=== PATIENT | female | born 1965 | race Caucasian/White ===

== ENCOUNTER 2018-02-05 07:27 | Outpatient (CLI) | payer OTHER ==
[~2018-02-05 07:27] MED LIST: CHOL10002 PO; LACT1CAP73 PO; MAGN400C PO; OMEG300C3 PO; [UNRECOGNIZED DRUG - OTHER] PO
[2018-02-05 08:15] LABS: BASOPHILS % (AUTO) 0.9 % (0-1); EOSINOPHILS # (AUTO) 0.1 X10'3 (0-0.9); EOSINOPHILS % (AUTO) 2.4 % (0-6); HEMATOCRIT 38.9 % (35.0-45.0); HEMOGLOBIN 13.4 g/dl (12.0-16.0); LYMPHOCYTES # (AUTO) 1.8 X10'3 (1.1-4.8); LYMPHOCYTES % (AUTO) 32.3 % (21-51); MEAN CORPUSCULAR HEMOGLOBIN 30.8 PG (27.0-31.0); MEAN CORPUSCULAR HGB CONC 34.4 % (33.0-36.5); MEAN CORPUSCULAR VOLUME 89.4 FL (78-98); MONOCYTES # (AUTO) 0.6 X10'3 (0-0.9); MONOCYTES % (AUTO) 10.7 % (2-12); NEUTROPHILS % (AUTO) 53.7 % (42-75); PLATELET COUNT 229 X10'3 (140-440); RED BLOOD COUNT 4.35 X10'6 (4.20-5.60); RED CELL DISTRIBUTION WIDTH 13.3 % (11.5-14.5); WHITE BLOOD COUNT 5.6 X10'3 (4.5-11.0)
[2018-02-05 08:43] LABS: ALANINE AMINOTRANSFERASE 20 U/L (12-78); ALBUMIN 3.8 G/DL (3.4-5.0); ALKALINE PHOSPHATASE 74 IU/L (46-116); ANION GAP 6 (8-16); ASPARTATE AMINO TRANSFERASE 13 U/L (10-37); BILIRUBIN,TOTAL 0.6 MG/DL (0.1-1.0); BLOOD UREA NITROGEN 13 MG/DL (7-18); C-REACTIVE PROTEIN 0.27 MG/DL (0.0-0.5); CHLORIDE 103 MMOL/L (99-107); CHOL/HDL RATIO 2.2 (0.00-4.99); CHOLESTEROL 192 MG/DL (0-200); CREATININE 1.08 MG/DL (0.40-0.90); GLUCOSE 101 MG/DL (70-104); HDL CHOLESTEROL 88 MG/DL (35-60); LDL CHOLESTEROL 96 MG/DL (50-100); PHOSPHORUS 3.7 MG/DL (2.3-4.5); POTASSIUM 4.4 MMOL/L (3.5-5.1); SODIUM 140 MMOL/L (135-145); TOTAL CARBON DIOXIDE 30.6 MMOL/L (24-32); TOTAL PROTEIN 7.8 G/DL (6.4-8.2); TRIGLYCERIDES 26 MG/DL (20-135); eGFR 54 ML/MIN
[2018-02-06 08:16] LABS: HBSAG SCREEN Negative (Negative); HEP A AB, IGM Negative (Negative); HEP B CORE AB, IGM Negative (Negative); HEPATITIS C ANTIBODY 2.1 s/co ratio (0.0-0.9); THIIODOTHRONINE, FREE, SERUM 2.5 pg/mL (2.0-4.4); THYROID PEROXIDASE AB 11 IU/mL (0-34)
[2018-02-06 13:36] LABS: EBV AB VCA, IGM <36.0 U/mL (0.0-35.9); EBV NUCLEAR ANTIGEN AB, IGG <18.0 U/mL (0.0-17.9)
[2018-02-07 05:20] LABS: ANTITHYROGLOBULIN AB <1.0 IU/mL (0.0-0.9); VITAMIN D, 25-HYDROXY 43.3 ng/mL (30.0-100.0)
== END 2018-02-05 23:59 | disposition home or self-care (01) ==
LOC: LAB 07:27
PROVIDERS: ATTEND Family Medicine
DX: Z00.01 Encounter for general adult medical examination with abnormal findings (principal); E04.9 Nontoxic goiter, unspecified; E03.9 Hypothyroidism, unspecified; Z87.891 Personal history of nicotine dependence
CPT/HCPCS: 36415; 76536; 80053; 80061; 80074; 82306; 82607; 82652; 82746; 84100; 84439; 84443; 84481; 84550; 85025; 85651; 86140; 86376; 86663; 86664; 86665

== ENCOUNTER 2018-08-28 13:11 | Emergency (ER) | payer OTHER ==
[~2018-08-28] VITALS: Ht 172.7 cm; Wt 85.0 kg
[2018-08-28 13:55] LABS: BASOPHILS % (AUTO) 0.7 % (0-1); EOSINOPHILS # (AUTO) 0.2 X10'3 (0-0.9); EOSINOPHILS % (AUTO) 2.7 % (0-6); HEMOGLOBIN 13.7 g/dl (12.0-16.0); LYMPHOCYTES # (AUTO) 1.7 X10'3 (1.1-4.8); MEAN CORPUSCULAR HGB CONC 33.4 % (33.0-36.5); MONOCYTES # (AUTO) 0.6 X10'3 (0-0.9); NEUTROPHILS # (AUTO) 3.7 X10'3 (1.8-7.7); NEUTROPHILS % (AUTO) 60.6 % (42-75); PLATELET COUNT 258 X10'3 (140-440); RED BLOOD COUNT 4.55 X10'6 (4.20-5.60); RED CELL DISTRIBUTION WIDTH 13.4 % (11.5-14.5); WHITE BLOOD COUNT 6.1 X10'3 (4.5-11.0)
[2018-08-28 14:24] VITALS: BP 130/82
--- NOTE | 2018-08-28 14:24 | NUR ---
PT RESTING QUIETLY ON GURNEY, WAITING FOR CT
--- NOTE | 2018-08-28 14:26 | NUR ---
pt to CT
--- NOTE | 2018-08-28 14:52 | NUR ---
Dr Brito at bedside to eval pt
[2018-08-28 15:05] LABS: ALANINE AMINOTRANSFERASE 20 U/L (12-78); ALBUMIN 3.8 G/DL (3.4-5.0); ALKALINE PHOSPHATASE 80 IU/L (46-116); ANION GAP 10 (8-16); ASPARTATE AMINO TRANSFERASE 12 U/L (10-37); BILIRUBIN,TOTAL 0.5 MG/DL (0.1-1.0); BLOOD UREA NITROGEN 15 MG/DL (7-18); BUN/CREATININE RATIO 18.8 (6.6-38.0); CHLORIDE 101 MMOL/L (99-107); GLUCOSE 106 MG/DL (70-104); POTASSIUM 4.4 MMOL/L (3.5-5.1); SODIUM 137 MMOL/L (135-145); TOTAL PROTEIN 7.7 G/DL (6.4-8.2); eGFR 76 ML/MIN
== END 2018-08-28 15:25 | disposition home or self-care (01) ==
LOC: ER 13:12
DX: R51 Headache (principal); H53.8 Other visual disturbances; Z88.8 Allergy status to other drugs, medicaments and biological substances
CPT/HCPCS: 36415; 70450; 80053; 85025; 99284

== ENCOUNTER 2019-12-31 11:12 | Emergency (ER) | payer OTHER ==
[~2019-12-31] VITALS: Ht 177.8 cm; Wt 90.0 kg
[2019-12-31] MEDS ORDERED: iohexol 300mg/ml 100ml inj. ONE (11:24)
--- NOTE | 2019-12-31 11:39 | NUR ---
pt out to ct via wheelchair with motion picture camera operator
[2019-12-31 11:59] LABS: BASOPHILS % (AUTO) 0.8 % (0-1); EOSINOPHILS # (AUTO) 0.1 X10'3 (0-0.9); EOSINOPHILS % (AUTO) 1.7 % (0-6); HEMATOCRIT 40.4 % (35.0-45.0); HEMOGLOBIN 13.4 g/dl (12.0-16.0); LYMPHOCYTES # (AUTO) 1.4 X10'3 (1.1-4.8); LYMPHOCYTES % (AUTO) 28.6 % (21-51); MEAN CORPUSCULAR HEMOGLOBIN 30.9 PG (27.0-31.0); MEAN CORPUSCULAR HGB CONC 33.2 g/dL (33.0-36.5); MEAN CORPUSCULAR VOLUME 93.2 FL (78-98); MEAN PLATELET VOLUME 8.1 FL (7.4-10.4); MONOCYTES # (AUTO) 0.5 X10'3 (0-0.9); MONOCYTES % (AUTO) 10.6 % (2-12); NEUTROPHILS # (AUTO) 2.9 X10'3 (1.8-7.7); NEUTROPHILS % (AUTO) 58.3 % (42-75); PLATELET COUNT 252 X10'3 (140-440); RED BLOOD COUNT 4.33 X10'6 (4.20-5.60); RED CELL DISTRIBUTION WIDTH 13.5 % (11.5-14.5); WHITE BLOOD COUNT 4.9 X10'3 (4.5-11.0)
--- NOTE | 2019-12-31 12:00 | NUR ---
pt returns from ct
[2019-12-31 12:10] LABS: PARTIAL THROMBOPLASTIN TIME 28 SECONDS (22-32)
[2019-12-31 12:13] LABS: ALANINE AMINOTRANSFERASE 22 U/L (12-78); ALBUMIN 4.1 G/DL (3.4-5.0); ALBUMIN/GLOBULIN RATIO 1.1 (1.1-1.5); ALKALINE PHOSPHATASE 86 IU/L (46-116); ANION GAP 8 (8-16); ASPARTATE AMINO TRANSFERASE 23 U/L (10-37); BILIRUBIN,TOTAL 0.8 MG/DL (0.1-1.0); BLOOD UREA NITROGEN 7 MG/DL (7-18); BUN/CREATININE RATIO 8.6 (6.6-38.0); CALCIUM 9.1 MG/DL (8.5-10.1); CHLORIDE 103 MMOL/L (99-107); CREATININE 0.81 MG/DL (0.40-0.90); GLUCOSE 94 MG/DL (70-104); LIPASE 229 U/L (73-393); POTASSIUM 3.9 MMOL/L (3.5-5.1); SODIUM 137 MMOL/L (135-145); TOTAL CARBON DIOXIDE 26.1 MMOL/L (24-32); TOTAL PROTEIN 7.8 G/DL (6.4-8.2); eGFR 74 ML/MIN
--- NOTE | 2019-12-31 12:31 | NUR ---
aware patient unable to void at this time.
[2019-12-31 13:20] LABS: CLARITY,URINE CLEAR (Clear); COLOR,URINE STRAW (Yellow); GLUCOSE, URINE NEGATIVE (Neg); KETONES,URINE NEGATIVE (Neg); LEUKOCYTE ESTERASE ,URINE NEGATIVE (Neg); NITRITES, URINE NEGATIVE (Neg); OCCULT BLOOD,URINE NEGATIVE (Neg); PROTEIN,URINE NEGATIVE (Neg); UA COLLECTION TYPE CLN CATCH MIDSTREAM; UROBILINOGEN,URINE 0.2 E.U/dL (0.2-1.0)
[2019-12-31 14:10] VITALS: BP 118/72
== END 2019-12-31 14:12 | disposition home or self-care (01) ==
LOC: ER 11:12 → EEVIPCON 11:12 → ER 14:12
DX: S30.1XXA Contusion of abdominal wall, initial encounter (principal); S20.212A Contusion of left front wall of thorax, initial encounter; Z98.890 Other specified postprocedural states; Z88.8 Allergy status to other drugs, medicaments and biological substances; Z79.899 Other long term (current) drug therapy; V29.9XXA Motorcycle rider (driver) (passenger) injured in unspecified traffic accident, initial encounter; Y93.89 Activity, other specified; Y92.89 Other specified places as the place of occurrence of the external cause; Y99.8 Other external cause status
CPT/HCPCS: 36415; 71260; 74177; 80053; 81003; 83690; 85025; 85610; 85730; 99285; Q9967

== ENCOUNTER 2020-07-19 09:35 | Day surgery (SDC) | payer BC ==
[~2020-07-19] VITALS: Ht 177.8 cm; Wt 95.5 kg
[2020-07-19 09:46] VITALS: BP 133/70
[2020-07-19] MEDS ORDERED: fentaNYL/PF 50MCG/1 ML 2ML syringe ONE (10:00)
[2020-07-19] MEDS ORDERED: LIDOcaine Viscous 15ml cup ONE (10:00)
[2020-07-19] MEDS ORDERED: MIDAZolam 5mg/5ml vial ONE (10:00)
[2020-07-19 10:29] VITALS: BP 137/76
[2020-07-19 10:39] VITALS: BP 134/77
[2020-07-19 10:49] VITALS: BP 122/64
[2020-07-19 10:59] VITALS: BP 130/75
== END 2020-07-19 11:07 | disposition home or self-care (01) ==
LOC: GI LAB 09:35
PROVIDERS: ATTEND Internal Medicine Gastroenterology
DX: R13.10 Dysphagia, unspecified (principal); K21.00 Gastro-esophageal reflux disease with esophagitis, without bleeding; K29.70 Gastritis, unspecified, without bleeding; K44.9 Diaphragmatic hernia without obstruction or gangrene; Z88.8 Allergy status to other drugs, medicaments and biological substances; Z79.899 Other long term (current) drug therapy
CPT/HCPCS: 43239; 99152; J2250; J3010; J7040; A4620

== ENCOUNTER 2021-03-17 12:01 | Emergency (ER) | payer BC, OTHER ==
[~2021-03-17] VITALS: Ht 177.8 cm; Wt 90.9 kg
[~2021-03-17 12:01] MED LIST changes: -CHOL10002 PO; -LACT1CAP73 PO; -OMEG300C3 PO
[2021-03-17 12:07] VITALS: BP 135/62
[2021-03-17] MEDS ORDERED: CEPH250T PO (12:23)
[2021-03-17 12:42] LABS: CLARITY,URINE SLIGHTLY CLOUDY (Clear); COLOR,URINE YELLOW (Yellow); GLUCOSE, URINE NEGATIVE (Neg); KETONES,URINE NEGATIVE (Neg); LEUKOCYTE ESTERASE ,URINE SMALL (Neg); NITRITES, URINE NEGATIVE (Neg); OCCULT BLOOD,URINE SMALL (Neg); PROTEIN,URINE NEGATIVE (Neg); UROBILINOGEN,URINE 0.2 E.U/dL (0.2-1.0)
[2021-03-17 12:46] LABS: UA COLLECTION TYPE CLN CATCH MIDSTREAM
[2021-03-17 12:47] LABS: WBC,URINE 30-50 /HPF (0-4)
[2021-03-17 12:48] LABS: BACTERIA,URINE 3+ /HPF (Neg); MUCUS STRANDS FEW /LPF (Neg); RBC,URINE 0-2 /HPF (0-2); SQUAMOUS EPITHELIAL CELL,UR NONE SEEN /LPF (FEW)
== END 2021-03-17 12:57 | disposition home or self-care (01) ==
LOC: ER 12:02
DX: N39.0 Urinary tract infection, site not specified (principal); Z88.8 Allergy status to other drugs, medicaments and biological substances
CPT/HCPCS: 81001; 87077; 87088; 87186; 99283

== ENCOUNTER 2021-10-01 07:40 | Day surgery (SDC) | payer BC ==
[~2021-10-01] VITALS: Ht 154.9 cm; Wt 90.9 kg
[2021-10-01] MEDS ORDERED: MIDAZolam 1 MG/ML 5ML VIAL ONE (08:01)
[2021-10-01] MEDS ORDERED: fentaNYL/PF 50MCG/1 ML 2ML syringe ONE (08:01)
[2021-10-01] MEDS ORDERED: MAGN200T8 PO (08:08)
[2021-10-01 08:59] VITALS: BP 126/82
[2021-10-01 10:57] VITALS: BP 132/72
[2021-10-01 11:07] VITALS: BP 131/70
[2021-10-01 11:17] VITALS: BP 121/70
[2021-10-01 11:27] VITALS: BP 125/62
== END 2021-10-01 11:30 | disposition home or self-care (01) ==
LOC: GI LAB 07:40
PROVIDERS: ATTEND Internal Medicine Gastroenterology
DX: Z12.11 Encounter for screening for malignant neoplasm of colon (principal); K57.30 Diverticulosis of large intestine without perforation or abscess without bleeding; K64.8 Other hemorrhoids; Z86.010 Personal history of colon polyps
CPT/HCPCS: 45378; 99152; 99153; J2250; J3010; J7040; Z7512; A4620

== ENCOUNTER 2022-07-11 09:42 | Emergency (ER) | payer BC ==
[~2022-07-11] VITALS: Ht 177.8 cm; Wt 90.9 kg
[~2022-07-11 09:42] MED LIST changes: +MAGN200T8 PO; -MAGN400C PO; -[UNRECOGNIZED DRUG - OTHER] PO
[2022-07-11 09:59] LABS: BASOPHILS # (AUTO) 0.1 X10'3 (0-0.2); BASOPHILS % (AUTO) 0.9 % (0-1); EOSINOPHILS # (AUTO) 0.1 X10'3 (0-0.9); EOSINOPHILS % (AUTO) 1.3 % (0-6); HEMATOCRIT 39.1 % (35.0-45.0); LYMPHOCYTES % (AUTO) 35.7 % (21-51); MEAN CORPUSCULAR HEMOGLOBIN 29.6 PG (27.0-31.0); MEAN CORPUSCULAR HGB CONC 33.2 g/dL (33.0-36.5); MEAN CORPUSCULAR VOLUME 89.2 FL (78-98); MEAN PLATELET VOLUME 7.5 FL (7.4-10.4); MONOCYTES # (AUTO) 0.6 X10'3 (0-0.9); MONOCYTES % (AUTO) 10.7 % (2-12); NEUTROPHILS # (AUTO) 2.9 X10'3 (1.8-7.7); NEUTROPHILS % (AUTO) 51.4 % (42-75); PLATELET COUNT 297 X10'3 (140-440); RED BLOOD COUNT 4.38 X10'6 (4.20-5.60); RED CELL DISTRIBUTION WIDTH 13.8 % (11.5-14.5); WHITE BLOOD COUNT 5.7 X10'3 (4.5-11.0)
[2022-07-11 10:19] LABS: ALANINE AMINOTRANSFERASE 39 U/L (12-78); ALBUMIN/GLOBULIN RATIO 1.1 (1.1-1.5); ALKALINE PHOSPHATASE 71 IU/L (46-116); ASPARTATE AMINO TRANSFERASE 30 U/L (10-37); BILIRUBIN,TOTAL 0.7 MG/DL (0.1-1.0); BLOOD UREA NITROGEN 19 MG/DL (7-18); BUN/CREATININE RATIO 24.4 (6.6-38.0); CALCIUM 9.2 MG/DL (8.5-10.1); CREATININE 0.78 MG/DL (0.40-0.90); GLUCOSE 105 MG/DL (70-104); MAGNESIUM 2.1 MG/DL (1.5-2.4); TOTAL CARBON DIOXIDE 26.7 MMOL/L (24-32); TOTAL PROTEIN 7.6 G/DL (6.4-8.2); eGFR 77 ML/MIN
[2022-07-11 10:31] LABS: CHLORIDE 98 MMOL/L (99-107)
[2022-07-11 10:35] LABS: ANION GAP 10 (8-16); SODIUM 135 MMOL/L (135-145)
[2022-07-11 11:17] VITALS: BP 129/83
== END 2022-07-11 11:24 | disposition home or self-care (01) ==
LOC: ER 09:42
DX: R07.9 Chest pain, unspecified (principal); Z88.5 Allergy status to narcotic agent
CPT/HCPCS: 36415; 71045; 80053; 83735; 83880; 84484; 85025; 93005; 99285

== ENCOUNTER 2023-03-14 07:05 | Outpatient (CLI) | payer BC ==
[2023-03-14 08:14] LABS: BASOPHILS % (AUTO) 0.9 % (0-1); EOSINOPHILS # (AUTO) 0.2 X10'3 (0-0.9); EOSINOPHILS % (AUTO) 3.1 % (0-6); HEMATOCRIT 39.3 % (35.0-45.0); HEMOGLOBIN 13.1 g/dl (12.0-16.0); LYMPHOCYTES % (AUTO) 41.2 % (21-51); MEAN CORPUSCULAR HEMOGLOBIN 29.8 PG (27.0-31.0); MEAN CORPUSCULAR HGB CONC 33.4 g/dL (33.0-36.5); MEAN CORPUSCULAR VOLUME 89.1 FL (78-98); MEAN PLATELET VOLUME 7.9 FL (7.4-10.4); MONOCYTES # (AUTO) 0.5 X10'3 (0-0.9); MONOCYTES % (AUTO) 10.5 % (2-12); NEUTROPHILS # (AUTO) 2.2 X10'3 (1.8-7.7); NEUTROPHILS % (AUTO) 44.3 % (42-75); PLATELET COUNT 248 X10'3 (140-440); RED BLOOD COUNT 4.41 X10'6 (4.20-5.60); RED CELL DISTRIBUTION WIDTH 13.4 % (11.5-14.5); WHITE BLOOD COUNT 4.9 X10'3 (4.5-11.0)
[2023-03-14 09:45] LABS: ALANINE AMINOTRANSFERASE 33 U/L (12-78); ALBUMIN 3.6 G/DL (3.4-5.0); ALKALINE PHOSPHATASE 69 IU/L (46-116); ANION GAP 9 (8-16); ASPARTATE AMINO TRANSFERASE 21 U/L (10-37); BILIRUBIN,TOTAL 0.5 MG/DL (0.1-1.0); BLOOD UREA NITROGEN 17 MG/DL (7-18); BUN/CREATININE RATIO 20.2 (10.0-20.0); C-REACTIVE PROTEIN 0.36 MG/DL (0.0-0.5); CALCIUM 9.2 MG/DL (8.5-10.1); CHLORIDE 103 MMOL/L (99-107); CHOL/HDL RATIO 2.3 (0.00-4.99); CHOLESTEROL 234 MG/DL (0-200); CREATININE 0.84 MG/DL (0.40-0.90); GLUCOSE 118 MG/DL (70-104); HDL CHOLESTEROL 102 MG/DL (35-60); LDL CHOLESTEROL 105 MG/DL (50-100); POTASSIUM 4.3 MMOL/L (3.5-5.1); SODIUM 137 MMOL/L (135-145); TOTAL CARBON DIOXIDE 24.7 MMOL/L (24-32); TOTAL PROTEIN 7.2 G/DL (6.4-8.2); TRIGLYCERIDES 28 MG/DL (20-135); eGFR 70 ML/MIN
[2023-03-14 09:53] LABS: HEMOGLOBIN A1C 5.8 % (4.5-6.2)
[2023-03-15 10:37] LABS: THIIODOTHRONINE, FREE, SERUM 5.3 pg/mL (2.0-4.4)
[2023-03-18 08:59] LABS: IODINE SERUM OR PLASMA 36.3 ug/L (40.0-92.0)
== END 2023-03-14 23:59 | disposition home or self-care (01) ==
LOC: LAB 07:05
PROVIDERS: ATTEND Nurse Practitioner
DX: Z00.00 Encounter for general adult medical examination without abnormal findings (principal); R79.82 Elevated C-reactive protein (CRP); L68.0 Hirsutism; R63.5 Abnormal weight gain; E55.9 Vitamin D deficiency, unspecified; E06.3 Autoimmune thyroiditis
CPT/HCPCS: 36415; 80053; 80061; 82306; 83036; 83525; 83735; 83789; 84402; 84403; 84439; 84443; 84481; 84482; 85025; 86140

== ENCOUNTER 2023-06-08 13:28 | Emergency (ER) | payer BC ==
[~2023-06-08] VITALS: Ht 177.8 cm; Wt 90.9 kg
[2023-06-08] MEDS ORDERED: oxyCODONE/APAP 10/325mg tablet PO ONE (13:55)
[2023-06-08] MEDS ORDERED: OXYC-150 PO (14:49)
[2023-06-08 15:30] VITALS: BP 104/58; PULSE 56; RESP 20; TEMP 98.4; O2SAT 98
== END 2023-06-08 16:04 | disposition home or self-care (01) ==
LOC: ER 13:28
DX: S30.0XXA Contusion of lower back and pelvis, initial encounter (principal); S06.0X0A Concussion without loss of consciousness, initial encounter; Z88.8 Allergy status to other drugs, medicaments and biological substances; Z79.899 Other long term (current) drug therapy; W19.XXXA Unspecified fall, initial encounter; Y93.89 Activity, other specified; Y92.89 Other specified places as the place of occurrence of the external cause; Y99.8 Other external cause status
CPT/HCPCS: 70450; 73502; 99284

== ENCOUNTER 2023-06-12 15:16 | Outpatient (CLI) | payer BC ==
[~2023-06-12 15:16] MED LIST changes: +OXYC-150 PO
[2023-06-12] MEDS ORDERED: iohexol 300mg/ml 100ml inj. ONE (15:24)
== END 2023-06-12 23:59 | disposition home or self-care (01) ==
LOC: RAD 15:16
PROVIDERS: ATTEND Family Medicine
DX: R10.2 Pelvic and perineal pain (principal)
CPT/HCPCS: 74177; J3490; Q9967

== ENCOUNTER 2023-06-27 14:43 | Outpatient (CLI) | payer BC | END 2023-06-27 23:59 | disposition home or self-care (01) | LOC: RAD 14:43 | PROVIDERS: ATTEND Family Medicine | DX: M25.551 Pain in right hip (principal); R60.0 Localized edema | CPT/HCPCS: 72195; 73721 ==

== ENCOUNTER 2023-08-02 13:04 | Emergency (ER) | payer BC ==
[~2023-08-02] VITALS: Ht 177.8 cm; Wt 90.9 kg
[2023-08-02 13:05] VITALS: BP 145/85; PULSE 92; RESP 16; TEMP 98.2; O2SAT 100
[2023-08-02] MEDS ORDERED: AZIT250T27 PO (13:28)
[2023-08-02] MEDS ORDERED: BENZ-38 PO (13:28)
== END 2023-08-02 13:38 | disposition home or self-care (01) ==
LOC: ER 13:05
DX: J20.9 Acute bronchitis, unspecified (principal); Z88.8 Allergy status to other drugs, medicaments and biological substances; Z79.899 Other long term (current) drug therapy
CPT/HCPCS: 87502; 87503; 99283

== ENCOUNTER 2024-08-20 09:34 | Outpatient (CLI) | payer BC ==
[2024-08-20 10:48] LABS: BASOPHILS % (AUTO) 0.9 % (0-1); EOSINOPHILS # (AUTO) 0.1 X10'3 (0-0.9); EOSINOPHILS % (AUTO) 1.9 % (0-6); HEMATOCRIT 40.7 % (35.0-45.0); HEMOGLOBIN 13.6 g/dl (12.0-16.0); LYMPHOCYTES # (AUTO) 1.4 X10'3 (1.1-4.8); LYMPHOCYTES % (AUTO) 29.4 % (21-51); MEAN CORPUSCULAR HEMOGLOBIN 30.8 PG (27.0-31.0); MEAN CORPUSCULAR HGB CONC 33.4 g/dL (33.0-36.5); MEAN CORPUSCULAR VOLUME 92.1 FL (78-98); MONOCYTES # (AUTO) 0.5 X10'3 (0-0.9); MONOCYTES % (AUTO) 10.6 % (2-12); NEUTROPHILS # (AUTO) 2.7 X10'3 (1.8-7.7); NEUTROPHILS % (AUTO) 57.2 % (42-75); PLATELET COUNT 287 X10'3 (140-440); RED BLOOD COUNT 4.42 X10'6 (4.20-5.60); RED CELL DISTRIBUTION WIDTH 13.5 % (11.5-14.5); WHITE BLOOD COUNT 4.7 X10'3 (4.5-11.0)
[2024-08-20 10:51] LABS: ALANINE AMINOTRANSFERASE 19 U/L (12-78); ALBUMIN/GLOBULIN RATIO 1.2 (1.1-1.5); ALKALINE PHOSPHATASE 67 IU/L (46-116); ANION GAP 8 (8-16); ASPARTATE AMINO TRANSFERASE 12 U/L (10-37); BILIRUBIN,TOTAL 0.8 MG/DL (0.1-1.0); BLOOD UREA NITROGEN 18 MG/DL (7-18); BUN/CREATININE RATIO 21.4 (10.0-20.0); CALCIUM 9.1 MG/DL (8.5-10.1); CHLORIDE 101 MMOL/L (99-107); CHOL/HDL RATIO 2.2 (0.00-4.99); CHOLESTEROL 241 MG/DL (0-200); CREATININE 0.84 MG/DL (0.40-0.90); GLUCOSE 86 MG/DL (70-104); HDL CHOLESTEROL 109 MG/DL (35-60); LDL CHOLESTEROL 108 MG/DL (50-100); POTASSIUM 4.1 MMOL/L (3.5-5.1); SODIUM 135 MMOL/L (135-145); TOTAL CARBON DIOXIDE 25.6 MMOL/L (24-32); TOTAL PROTEIN 7.4 G/DL (6.4-8.2); TRIGLYCERIDES 42 MG/DL (20-135); eGFR 70 ML/MIN
[2024-08-20 14:03] LABS: HEMOGLOBIN A1C 5.5 % (4.5-6.2)
[2024-08-21 11:15] LABS: THIIODOTHRONINE, FREE, SERUM 2.1 pg/mL (2.0-4.4)
[2024-08-21 13:38] LABS: INSULIN 4.9 uIU/mL (2.6-24.9)
== END 2024-08-20 23:59 | disposition home or self-care (01) ==
LOC: RAD 09:34
PROVIDERS: ATTEND Nurse Practitioner
DX: E03.9 Hypothyroidism, unspecified (principal)
CPT/HCPCS: 36415; 80053; 80061; 82306; 83036; 83525; 84439; 84443; 84481; 84482; 85025